=== PATIENT | male | born 1980 | race Caucasian/White ===

== ENCOUNTER 2020-07-10 21:23 | Emergency (ER) | payer BC ==
[~2020-07-10] VITALS: Ht 188 cm; Wt 89.4 kg
[2020-07-10 21:28] VITALS: Ht 188 cm; Wt 89.4 kg
[2020-07-10 23:21] VITALS: BP 123/87
== END 2020-07-10 23:21 | disposition home or self-care (01) ==
LOC: ED 21:23
DX: S93.402A Sprain of unspecified ligament of left ankle, initial encounter (principal); S60.512A Abrasion of left hand, initial encounter; X50.1XXA Overexertion from prolonged static or awkward postures, initial encounter; Y93.01 Activity, walking, marching and hiking; Y92.89 Other specified places as the place of occurrence of the external cause; Y99.8 Other external cause status
CPT/HCPCS: J1885